=== PATIENT | female | born 1945 | race Caucasian/White ===

== ENCOUNTER → 2024-01-19 | Outpatient (CLI) | payer OTHER, SELFPAY ==
[2024-01-19 11:42] LABS: Glucose Estimated Average 105 mg/dL (80-131); Hemoglobin A1C 5.3 % Hgb (4.8-6.0)
[2024-01-19 11:45] LABS: Alanine Aminotransferase 23 U/L (10-49); Albumin, Serum 4.4 gm/dL (3.4-4.8); Alkaline Phosphatase 81 U/L (46-116); Anion Gap 8 (7-16); Aspartate Amino Transferase 27 U/L (0-34); BUN/Creatinine Ratio 20 Ratio (12-20); Bilirubin,Total 1.3 mg/dL (0.3-1.2); Blood Urea Nitrogen 18 mg/dL (9-23); Calcium 9.6 mg/dL (8.3-10.6); Calcium (Corrected) 9.6 mg/dL (8.5-10.1); Carbon Dioxide 25.2 mMol/L (20.0-31.0); Cardiac Risk Estimate 3.3 RATIO (3.7-5.6); Chloride 109 mMol/L (98-107); Cholesterol 126 mg/dL (132-200); Creatinine (Component) 0.9 mg/dL (0.6-1.3); Globulin 2.2 gm/dL (2.3-3.5); Glucose 101 mg/dL (74-106); HDL Cholesterol 38 mg/dL (40-60); LDL Cholesterol,Calculated 66 mg/dL (0-130); Osmolality,Calculated 285 (275-295); Potassium 4.2 mMol/L (3.4-5.1); Sodium 142 mMol/L (136-145); Thyroid Stimulating Hormone 0.02 uIU/mL (0.55-4.78); Total Protein 6.6 gm/dL (5.7-8.2); Triglycerides 112 mg/dL (30-150); eGFR > 60 See Note
== END | disposition home or self-care (01) ==
PROVIDERS: PCP Family Medicine; Referring Provider Physician Assistant; Visit Provider Physician Assistant
DX: I10 Essential (primary) hypertension (principal); E78.5 Hyperlipidemia, unspecified; E03.9 Hypothyroidism, unspecified; R73.01 Impaired fasting glucose
CPT/HCPCS: 36415; 80053; 80061; 83036; 84443

== ENCOUNTER 2024-11-22 17:07 | Emergency (ER) | payer OTHER, SELFPAY ==
[2024-11-22 17:20] VITALS: BP 113/74; PULSE 83; RESP 17; TEMP 37.2; O2SAT 95
[2024-11-22 17:25] VITALS: PULSE 88; RESP 16; O2SAT 99
[2024-11-22 17:32] VITALS: BMI 35.1
--- NOTE | 2024-11-22 17:34 | PC.NURSE ---
Patient's Willam notified patient here and came to er. Per states patient has h/o dementia and [place] and [place]. Patient mental status is normal for her, patient has no s/s of injury. Dr. Cosby at bedside, speaking with Patient and , will d/c home.
--- NOTE | 2024-11-22 17:36 | PD.EDAMS ---
Altered Mental Status RME/HPI General Chief Complaint: Altered Mental Status Stated Complaint: ALTERED Time Seen by Provider: 11/22/24 17:36 Arrival date/time: 11/22/24 17:07 Limitations: no limitations RME / HPI RME / HPI narrative: Patient has a history of dementia, [place] with [place] , when she wandered off. Patient has been trying to find her, was able to find her. Patient was found wandering in the streets. Patient denies any trauma. Says she feels fine. Denies any head pain neck pain chest pain leg pain abdominal pain. Patient is ambulating without any difficulty. Patient has no complaints. Patient's was notified came to the emergency department states that patient is at her neurologic baseline. Related Data Previous Rx's ?Medication ?Instructions ?Recorded aspirin 81 mg chewable tablet 81 mg PO QDAY #30 tabs 03/22/20 atorvastatin 20 mg tablet 40 mg (2 x 20 mg) PO HS #30 tabs 03/22/20 carvedilol 3.125 mg tablet 3.125 mg PO BID #60 tabs 03/22/20 clopidogrel 75 mg tablet (Plavix) 75 mg PO QDAY #30 tabs 03/22/20 losartan 25 mg tablet 25 mg PO QDAY #30 tabs 03/22/20 Allergies Allergy/AdvReac Type Severity Reaction Status Date / Time Penicillins Allergy Severe Anaphylaxis Verified 05/29/19 16:23 ED Exam General Limitations: Present no limitations Head Head exam: Present atraumatic and normocephalic Eye Eye exam: Present normal appearance, PERRL and EOMI ENT ENT exam: Present normal exam and normal oropharynx Neck Neck exam: Present normal inspection and full ROM; Absent tenderness Chest Chest inspection: Present normal inspection and symmetric chest wall rise Respiratory Respiratory exam: Present normal lung sounds bilaterally Cardiovascular Cardiovascular exam: Present regular rate and normal rhythm Abdominal Exam Abdominal exam: Present soft; Absent distention or tenderness Back Exam Back exam: Present normal inspection Neurological Exam Neurological exam: Present alert, CN II-XII intact, normal gait and other (alert and oriented to person and place, at her neurologic baseline per multiple family members ) Psychiatric Psychiatric exam: Present normal affect Course Quality Measures none Vital Signs Vital signs: Vital Signs Temperature 99.0 F 11/22/24 17:20 Pulse Rate 83 11/22/24 17:20 Respiratory Rate 17 11/22/24 17:20 Blood Pressure 113/74 11/22/24 17:20 Pulse Oximetry (%) 95 11/22/24 17:20 Oxygen Delivery Method Room Air 11/22/24 17:20 Altered Mental Status MDM Narrative MDM Narrative:: Patient is a 79 yo female that is in the ED with concerns for having [facility]. Patient has dementia, she has no complaints no signs of trauma. Patient's looked for her for over an hour, patient was found in a neighborhood lost. Patient is at her baseline neurologic status per family. Patient at times does get lost, but is always in the care of family throughout the day. Patient will be dc to the care of her at bedside. Patient data External records reviewed:: [facility] previous records and EMS form Clinical information provided by:: EMS and friend Social determinants that could affect healthcare access:: mental health Patient has the following chronic illnesses:: dementia How is presenting disease/condition affected by chronic disease/condition?: exacerbated by Evaluation data The following diagnostics were reviewed and interpreted by me:: other (specify) (none) Lab and/or radiology exams considered but not ordered:: none Interpretation Summary: see above Medications / Prescriptions Medications or Prescriptions considered but not ordered:: none Medication administrations:: non e Consultations Consultation(s) initiated? (list below): No Diagnosis Most likely diagnosis given after review of the tests above:: acute on chronic confusion, transient dementia Admission Indicated Admission indicated?: not indicated Admission Request Was there a request for admission?: No Disposition Plan Disposition Plan: Discharge Discharge Attestation Discharge Attestation: The patient and all family members were given an opportunity to ask questions and understood the discharge instructions. Discharge instructions specifically effects, indications for sooner follow up or return to the emergency department, and the expected course of current diagnosis. Patient condition: Stable Discharge Plan Plan Patient Disposition: HOME (Self Care) Prescriptions/Referrals Prescriptions/Med Rec: No Action atorvastatin 20 mg Tablet 40 mg PO HS Qty: 30 0RF clopidogrel [Plavix] 75 mg Tablet 75 mg PO QDAY Qty: 30 0RF carvedilol 3.125 mg Tablet 3.125 mg PO BID Qty: 60 0RF losartan 25 mg Tablet 25 mg PO QDAY Qty: 30 0RF aspirin 81 mg Tablet,Chewable 81 mg PO QDAY Qty: 30 0RF Problem List Clinical Impression: Dementia Patient/Caregiver Discharge Instructions Education Materials: Dementia Caregiver Tips Additional Instructions: Please follow-up with your primary care doctor within 1 to 2 days. Print Language: Hebrew Stand Alone Forms: [facility] Award Info., Patient Portal Info Letter
== END 2024-11-22 17:44 | disposition home or self-care (01) ==
LOC: SERX 17:40
PROVIDERS: Emergency Provider Emergency Medicine; PCP Family Medicine
DX: F03.90 Unspecified dementia, unspecified severity, without behavioral disturbance, psychotic disturbance, mood disturbance, and anxiety (principal); Z91.83 Wandering in diseases classified elsewhere
CPT/HCPCS: 99281